=== PATIENT | female | born 1985 | race Caucasian/White ===

== ENCOUNTER 2023-03-24 17:44 | Emergency (ER) | payer OTHER, SELFPAY ==
[2023-03-24 17:50] VITALS: BP 123/80; PULSE 96; RESP 20; TEMP 36.1; O2SAT 96; BMI 39.7
--- NOTE | 2023-03-24 18:00 | ED_ITS ---
HPI - General Adult General Date Seen: 03/24/23 Chief complaint: Cough Stated complaint: flu symptoms Time Seen by Provider: 03/24/23 17:58 History of Present Illness HPI narrative: This is a 37-year-old female presenting to the ER today for evaluation of cough, and significant body aches. Her daughter was diagnosed with influenza yesterday. Patient suspect she has influenza. She has been taking DayQuil and ibuprofen which only temporarily helps with her symptoms. Despite that she has ongoing significant body aches and joint aches, and ongoing, dry cough. She is not having shortness of breath. No chest pain. She has a mild headache. No confusion. No nausea, or vomiting, or diarrhea. No abdominal pain. She has been trying to manage her body aches with alternating doses of acetaminophen and ibuprofen but finds that to be ineffective. She came here to the ER saying she cannot manage her pain with her current meds. She has a history of hypertension but is otherwise healthy. No other underlying cardiovascular or pulmonary disease. No diabetes or immunosuppression. She did not get her flu shot this fall. Related Data Home Medications Medication Instructions Recorded Confirmed bupropion HCl 300 mg 24 hr tablet, 300 mg PO DAILY 03/24/23 03/24/23 extended release buspirone 5 mg tablet 5 mg PO BID 03/24/23 03/24/23 lisinopril 20 1 tab PO DAILY 03/24/23 03/24/23 mg-hydrochlorothiazide 25 mg tablet phentermine 30 mg capsule 30 mg PO DAILY 03/24/23 03/24/23 spironolactone 50 mg tablet 50 mg PO DAILY 03/24/23 03/24/23 Previous Rx's Medication Instructions Recorded ondansetron 4 mg disintegrating 4 mg PO Q8H PRN nausea and 03/24/23 tablet vomiting #10 tabs oseltamivir 75 mg capsule (Tamiflu) 75 mg PO BID 5 days #10 caps 03/24/23 oxycodone-acetaminophen 5 mg-325 1 tab PO Q6H PRN pain #10 tabs 03/24/23 mg tablet (Percocet) Allergies Allergy/AdvReac Type Severity Reaction Status Date / Time Penicillins Allergy Intermediate Verified 03/24/23 17:55 PFSH PFSH Social History Smoking Status: Never smoker Do you use any of these nicotine containing products: None Second hand tobacco smoke exposure: No How often do you have a drink containing alcohol: never How often do you have six or more drinks on one occasion: Never AUDIT-C Alcohol total score: 0 Non-prescribed substance use: denies use service: No Exam Narrative: Exam Narrative: Constitutional: Appears well-developed and well-nourished. Alert. Conversant. Non toxic. HENT: Head: Atraumatic. Nose: Nose normal. Right ear: Pinna, mastoid, canal normal. Scant amount of fluid behind the TM but no erythema or bulging Left ear: Pinna, mastoid, canal normal. There is opaque fluid behind the TM but no erythema or bulging. Mouth/Throat: Oral mucosa is clear and moist. no trismus. Pharynx normal. Tonsils symmetric. No tonsillar enlargement, erythema, or exudate. Eyes: Conjunctivae normal. EOM normal. Pupils equal, round, and reactive to light. No scleral icterus. Neck: Normal range of motion. Neck supple. No tracheal deviation present. Cardiovascular: Normal rate, regular rhythm. No gallop. No friction rub. No murmur heard. Symmetric radial artery pulses Pulmonary/Chest: Effort normal. No stridor. No respiratory distress. No wheezes. No rales. No rhonchi . No tenderness. Abdominal: Soft. No distension. No mass. No tenderness. No rebound. No guarding. Musculoskeletal: RUE: Normal range of motion. No tenderness. No deformity LUE: Normal range of motion. No tenderness. No deformity RLE: Normal range of motion. No edema. No tenderness. No deformity LLE: Normal range of motion. No edema. No tenderness. No deformity Lymph: No cervical adenopathy. Neurological: Alert and oriented to person, place, and time. Normal strength. CN II-VII intact. No sensory deficit. GCS eye subscore is 4. GCS verbal subscore is 5. GCS motor subscore is 6. Normal coordination Skin: Skin is warm and dry. No rash noted. No pallor. Normal capillary refill. Psychiatric: Normal mood. Normal affect. Const: Vital Signs, click to edit/add: Vital Signs - 24 hr 03/24/23 17:50 Temperature 97 F L Pulse Rate [Pulse Oximeter] 96 Respiratory Rate 20 Blood Pressure [Ri ght Upper Arm] 123/80 Pulse Oximetry 96 Oxygen Delivery Me thod Room Air Course Vital Signs Vital signs: Initial Vital Signs Temperature 97 F L 03/24/23 17:50 Temperature Source Temporal Artery Scan 03/24/23 17:50 Pulse Rate 96 03/24/23 17:50 Respiratory Rate 20 03/24/23 17:50 Blood Pressure 123/80 03/24/23 17:50 Blood Pressure Mean 94 03/24/23 17:50 Blood Pressure Position Sitting 03/24/23 17:50 Pulse Oximetry 96 03/24/23 17:50 Oxygen Delivery Method Room Air 03/24/23 17:50 Vital Signs Temperature 97 F L 03/24/23 17:50 Pulse Rate 96 03/24/23 17:50 Respiratory Rate 20 03/24/23 17:50 Blood Pressure 123/80 03/24/23 17:50 Pulse Oximetry 96 03/24/23 17:50 Oxygen Delivery Method Room Air 03/24/23 17:50 Temperature 97 F L 03/24/23 17:50 Pulse Rate 96 03/24/23 17:50 Respiratory Rate 20 03/24/23 17:50 Blood Pressure 123/80 03/24/23 17:50 Pulse Oximetry 96 03/24/23 17:50 Oxygen Delivery Method Room Air 03/24/23 17:50 Medical Decision Making MDM Narrative Medical decision making narrative: This patient presents for evaluation of cough, chills, body aches, myalgias. Her daughter is positive for influenza, diagnosed yesterday and she is now on her 2nd day of symptoms. This is consistent with an upper respiratory tract infection/influenza like illness. I have high clinical suspicion that she also has influenza, given her exposure to her daughter. Using shared decision- making, we decided to hold off on viral PCR testing at this time.. There is no signs at this point of serious bacterial infection such as OM, RPA, epiglottitis, [employer], strep pharyngitis, pneumonia, sinusitis, meningitis, bacteremia, serious bacterial infection. Given clear lungs, fever curve, no hypoxia and no respiratory distress I do not feel a CXR is indicated at this point as the probability of bacterial pneumonia is very unlikely. There are no gastrointestinal symptoms at this point and no signs of dehydration. Discussed with the patient option for Tamiflu. The indication would be severe symptoms and bad body aches as well as underlying hypertension. She wants to pursue treatment. She is within the 48 hour window. Discussed the side effects of Tamiflu. She also says that she her [id number] medications are not controlling her body aches. Prescription for Percocet provided. Opiate precautions reviewed. Close followup with primary care physician is indicated. Return to ED for fever > 103, protracted vomiting, confusion, or other worsening. Discharge Plan Discharge Clinical Impression: Influenza Patient Disposition: Home, Self-Care Condition: Stable Instructions: Influenza (DC) Additional Instructions: As we discussed, please come back to the ER right away if you have high fever, worsening cough or trouble breathing, confusion, uncontrolled vomiting, weakness, or if you have any other concerns. Use caution with prescription medications for pain because they cause drowsiness, do not drive a car or operate machinery while taking this medication. His limit use of Percocet because it is also addictive. Prescriptions: New oxycodone-acetaminophen [Percocet] 5-325 mg tablet 1 tab PO Q6H PRN (Reason: pain) Qty: 10 0RF ondansetron 4 mg tablet,disintegrating 4 mg PO Q8H PRN (Reason: nausea and vomiting) Qty: 10 0RF oseltamivir [Tamiflu] 75 mg capsule 75 mg PO BID 5 Days Qty: 10 0RF No Action buspirone 5 mg tablet 5 mg PO BID phentermine 30 mg capsule 30 mg PO DAILY lisinopril-hydrochlorothiazide 20-25 mg tablet 1 tab PO DAILY spironolactone 50 mg tablet 50 mg PO DAILY bupropion HCl 300 mg tablet extended release 24 hr 300 mg PO DAILY Follow Up/Referrals: Myesha Roa MD [Staff Physician] - Stand Alone Forms: [employer] Info Instructions
== END 2023-03-24 18:46 | disposition home or self-care (01) ==
PROVIDERS: Emergency Provider Emergency Medicine
DX: J10.1 Influenza due to other identified influenza virus with other respiratory manifestations (principal)
CPT/HCPCS: 99283